=== PATIENT | male | born 1985 | race Caucasian/White ===

== ENCOUNTER 2018-11-30 12:02 | Emergency (ER) | payer SELFPAY ==
[2018-11-30] MEDS ORDERED: Adacel (T-DAP) 0.5 ML SYRINGE ONE (12:19)
[2018-11-30] MEDS ORDERED: traMADol HCl 50 MG TAB ONE (12:20)
== END 2018-11-30 12:32 | disposition home or self-care (01) ==
LOC: ERS 12:02
DX: K02.9 Dental caries, unspecified (principal)
CPT/HCPCS: 90471; 90715